=== PATIENT | male | born 1980 | race Two or more races ===

== ENCOUNTER 2024-10-17 04:15 | Emergency (ER) | payer MEDICAID, OTHER ==
[~2024-10-17] VITALS: Ht 167.6 cm; Wt 98.0 kg
--- NOTE | 2024-10-17 04:57 | ED.PDOC ---
GI ASSESSMENT HPI Comments -A 44 YEAR-OLD MALE PRESENTS TO THE ED WITH A CHIEF COMPLAINT OF LEFT SIDE ABDOMINAL PAIN OF LAST NIGHT. PATIENT STATES THAT PAIN IS RADIATING TO BACK, EXACERBATED WITH MOVEMENT, WITH NO ASSOCIATED ALLEVIATING FACTORS. PATIENT HAS NO FURTHER COMPLAINTS AT THIS TIME AND OTHERWISE DENIES N/V, FEVER, CHILLS, CHEST PAIN, OR DIZZINESS. PATIENT IS ALERT, ORIENTED X 4, AND HAS STEADY GAIT. Chief Complaint: LUQ ABDOMINAL PAIN Time Seen by MD: 04:17 Reviewed Notes: Nurses Notes, Medications, Allergies Home Meds Active Scripts Tamsulosin Hcl (Flomax) 0.4 Mg Cap, 1 CAP PO DAILY, #30 CAP Prov:LAVONNE WREN 10/17/24 Ibuprofen (Ibuprofen) 800 Mg Tab, 1 TAB PO TID, #30 TAB Prov:LAVONNE WREN 10/17/24 Information Source: Patient Mode of Arrival: Ambulatory Timing: Days Duration: Since onset, Days Prehospital treatment: None Quality: Sharp, Colicky Vomitus: None Stool: Normal Severity: Moderate Recent: None Recent Hx of: None Pain Location: LUQ, LLQ Modifying Factors: Nothing Associated sign and symptoms: Nausea, Abdominal Pain (LUQ) Past Medical History PAST MEDICAL HISTORY: Denies Surgical History: Denies all surgeries Family History Family History: Reviewed,noncontributory to illness, No family hx of Cancer, No family hx of DM, No family hx of Heart richi, No family hx of HTN, No family hx ofKidney richi, No family hx of Liver richi, No family hx of Lung richi, No family hx of Stroke Social History Smoker: Non-Smoker Alcohol: Denies ETOH Use Drugs: Denies Drug Use Lives In: Home Constitutional: denies: chills, diaphoresis, fatigue, fever, malaise, sweats, weakness, others EENTM: denies: blurred vision, double vision, ear bleeding, ear discharge, ear drainage, ear pain, ear ringing, eye pain, eye redness, hearing loss, mouth p ain, mouth swelling, nasal discharge, nose bleeding, nose congestion, nose pain, photophobia, tearing, throat pain, throat swelling, voice changes, others Respiratory: denies: cough, hemoptysis, orthopnea, SOB at rest, shortness of br eath, SOB with excertion, stridor, wheezing, others Cardiovascular: denies: chest pain, dizzy spells, diaphoresis, Dyspnea on exertion, edema, irregular heart beat, left arm pain, lightheadedness, palpitations, PND, syncope, others Gastrointestinal: reports: abdominal pain; denies: abdomen distended, blood streaked bowels, constipated, diarrhea, dysphagia, difficulty swallowing, hematemesis, melena, nausea, poor appetite, poor fluid intake, rectal bleeding, rectal pain, vomiting, others Genitourinary: reports: flank pain; denies: burning, dysuria, frequency, hematuria, incontinence, penile discharge, penile sore, pain, testicle pain, testicle swelling, urgency, others Neurological: denies: dizziness, fainting, headache, left sided numbness, left sided weakness, numbness, paresthesia, pre-existing deficit, right sided numbness, right sided weakness, seizure, speech problems, tingling, tremors, weakness, others Musculoskeletal: denies: back pain, gout, joint pain, joint swelling, muscle pain, muscle stiffness, neck pain, others Integumetry: denies: bruises, change in color, change in hair/nails, dryness, laceration, lesions, lumps, rash, wounds, others Allergic/Immunocompromised: denies: Difficulty Healing, Frequent Infections, Hives, Itching, others Hematologic/Lymphatic: denies: anemia, blood clots, easy bleeding, easy bruising, swollen glands, others Endocrine: denies: excessive hunger, excessive sweating, excessive thirst, excessive urination, flushing, intolerance to cold, intolerance to heat, unexplained weight gain, unexplained weight loss, others Psychiatric: denies: anxiety, bipolar disorder, depression, hopeless, panic dis order, schizophrenia, sleepless, suicidal, others All Other Systems: Reviewed and Negative Physical Exam General Appearance: No Apparent Distress, Normal HEENT: Normal ENT Inspection, PERRL/EOMI, Pharynx Normal, TMs Normal Neck: Full Range of Motion, Non-Tender, Normal, Normal Inspection Respiratory: Chest Non-Tender, Lungs Clear, No Accessory Muscle Use, No Respiratory Distress, Normal Breath Sounds Cardiovascular: No Edema, No JVD, No Murmur, No Gallop, Normal Peripheral Pulses, Regular Rate/Rhythm Breast Exam: Deferred Gastrointestinal: LLQ, No Organomegaly, No Pulsatile Mass, Normal Bowel Sounds, Soft, Tenderness (LEFT FLANK TO LEFT SIDE ABD, NO GUARDING AND REBOUND TENDERNESS, NO CVA TENDERNESS. ) Genitalia: Deferred Pelvic: Deferred Rectal: Deferred Extremities: No calf tenderness, Normal capillary refill, Normal inspection, Normal range of motion, Non-tender, No pedal edema Musculoskeletal : Apperance: Normal Neurologic: Alert, design tech II-XII nml as Tested, No Motor Deficits, Normal Affect, Normal Mood, No Sensory Deficits Cerebellar Function: Normal Reflexes: Normal Skin: Dry, Normal Color, Warm Peripheral Pulses: 2+ carotid (R), 2+ carotid (L) Lymphatic: No Adenopathy Was a procedure done? Was a procedure done?: No GI differential Dx Differential Diagnosis: Appendicitis, Gastritis/PUD, Gastroenteritis, Inflammatory BD, Urolithiasis, Bacterial, Malnutrition, Kidney Stone X-Ray, Labs, Meds, VS Vital Signs Date Time Temp Pulse Resp B/P (MAP) Pulse Ox O2 Delivery O2 Flow Rate FiO2 10/17/24 08:10 69 16 95 Room Air* 0 21 10/17/24 08:10 97.7 69 16 122/84 (97) 95 97.7 10/17/24 06:56 61 16 150/91 (110) 95 10/17/24 06:54 61 16 150/91 10/17/24 04:59 99.0 108 20 141/97 (112) 98 99.0 Lab Test 10/17/24 05:56 Range/Units White Blood Count 10.0 4.4-10.8 10^3/uL Red Blood Count 5.37 4.5-5.90 10^6/uL Hemoglobin 16.2 13.5-17.5 g/dL Hematocrit 46.7 41.0-53.0 % Mean Corpuscular Volume 87.0 80.0-100.0 fL Mean Corpuscular Hemoglobin 30.1 28.0-32.0 pg Mean Corpuscular Hemoglobin Concent 34.6 32.0-36.0 g/dL Red Cell Distribution Width 12.8 11.8-14.3 % Platelet Count 196 140-450 10^3/uL Mean Platelet Volume 8.0 6.9-10.8 fL Neutrophils (%) (Auto) 81.5 H 37.0-80.0 % Lymphocytes (%) (Auto) 12.6 10.0-50.0 % Monocytes (%) (Auto) 3.7 0.0-12.0 % Eosinophils (%) (Auto) 1.8 0.0-7.0 % Basophils (%) (Auto) 0.4 0.0-2.0 % Neutrophils # (Auto) 8.2 1.6-8.6 10 ^3/uL Lymphocytes # (Auto) 1.3 0.4-5.4 10 ^3/uL Monocytes # (Auto) 0.4 0-1.3 10 ^3/uL Eosinophils # (Auto) 0.2 0-0.8 10 ^3/uL Basophils # (Auto) 0 0-0.2 10 ^3/uL Nucleated Red Blood Cells 0.1 % Sodium Level 141 136-145 mmol/L Potassium Level 4.4 3.5-5.1 mmol/L Chloride Level 109 H 98-107 mmol/L Carbon Dioxide Level 24 20-31 mmol/L Anion Gap 8 5-15 Blood Urea Nitrogen 14 9-23 mg/dL Creatinine 0.85 0.700-1.30 mg/dL Glomerular Filtration Rate Calc 111 >90 mL/min BUN/Creatinine Ratio 16.5 10.0-20.0 Serum Glucose 116 H 74-106 mg/dL Calcium Level 9.1 8.7-10.4 mg/dL Total Bilirubin 0.4 0.2-1.0 mg/dL Aspartate Amino Transferase (AST) 28 13-40 U/L Alanine Aminotransferase (ALT) 43 H 7-40 U/L Alkaline Phosphatase 82 46-116 U/L Total Protein 6.7 5.7-8.2 g/dL Albumin 4.5 3.2-4.8 g/dL Lipase 36 12-53 U/L Exam: CT CT AB PEL WO CON-NO ORAL OR IV History: left flank pain Comparison Study: None Technique: Multidetector spiral CT of the abdomen was performed from lung bases to pubic symphysis. Imaging was performed without IV contrast. Axial, coronal and sagittal multiplanar reformats were obtained from the axial data set by the technologist. Radiation Dose : 1. Abdomen/Pelvis: CTDIvol 15.2 mGy, DLP 990.2 mGy*cm. Findings: Evaluation of solid organs is limited due to lack of intravenous contrast use. Lung Bases: Cardiomegaly. Coronary artery calcifications. Vascular calcifications of the aorta. Liver: Hepatomegaly. Gallbladder and Biliary Tree: Unremarkable Spleen: Unremarkable Pancreas: The pancreas is grossly normal in appearance. Adrenal Glands: Unremarkable Kidneys: Right kidney is unremarkable. Mild left hydroureteronephrosis with 0.2 cm obstructing stone in the mid left ureter. Bladder: Grossly unremarkable for degree of distention. Bowel: Post gastric bypass. Small bowel and colon are normal in caliber and distribution. Normal appendix is visualized in the right lower quadrant without findings of appendicitis. Ascites: Absent Lymphadenopathy: No mesenteric, retroperitoneal or periportal lymphadenopathy. Abdominal Wall and Mesentery: Unremarkable. Vasculature: The visualized abdominal aorta is normal in size and caliber. Evaluation of abdominal and pelvic vessels is limited due to lack of intravenous contrast. Pelvic Organs: Unremarkable Musculoskeletal: No aggressive focal bony lesions, acute fractures or dislocation. IMPRESSION: Mild left hydroureteronephrosis with 0.2 cm obstructing stone in the mid left ureter. Radiation optimization: All CT scans at this facility use at least one of these dose optimization techniques: automated exposure control mA and/or kV adjustment per patient size (includes targeted exams where dose is matched to clinical indication) or iterative reconstruction. X-Ray, Labs, Meds, VS Comment EXTERNAL MEDICAL RECORDS: NONE INDEPENDENT HISTORIANS: NONE SOCIAL DETERMINANTS OF HEALTH: NONE LABS ORDERED: BLOOD COUNT, METABOLIC PANEL, LIPASE, URINALYSIS REVIEWED AND INTERPRETED RESULTS: NONE IMAGING ORDERED: ABDOMINAL PEL CT SCAN TREATMENTS ORDERED: TORADOL INJECTION, SODIUM CHLORIDE 0.9%, MORPHINE SULFATE INJECTION, ZOFRAN PATIENT'S CASE AND RESULTS HAVE BEEN DISCUSSED WITH THE ED ATTENDING PHYSICIAN AND THEY AGREE WITH MY PLAN OF CARE. RX: MOTRIN 800MG AND FLOMAX 0.4MG I HAVE DISCUSSED IMAGING AND LAB RESULTS WITH THE PATIENT AND HAVE INSTRUCTED THE PATIENT TO FOLLOW UP WITH THEIR PCP IN 1-2 DAYS. THE PATIENT FULLY UNDERSTANDS THEIR RESULTS AND ARE AWARE THEY NEED TO FOLLOW UP WITH THEIR PCP FOR FURTHER EVALUATION IF THEIR SYMPTOMS PERSIST. Images Reviewed?: Images reviewed and evaluated by me Time of 1ST Reevaluation: 08:00 Reevaluation 1ST: Improved Patient Education/Counseling: Diagnosis, Treatment, Need For Follow Up Family Education/Counseling: Diagnosis, Treatment, No Family Present Medical Screening: No EMC Exist At This Time SEPSIS Sepsis Screen Physician Orders Ct Ab Pel Wo Con-No Oral Or Iv (10/17/24 04:57) Vital Signs Date Time Temp Pulse Resp B/P (MAP) Pulse Ox O2 Delivery O2 Flow Rate FiO2 10/17/24 08:10 69 16 95 Room Air* 0 21 10/17/24 08:10 97.7 69 16 122/84 (97) 95 97.7 10/17/24 06:56 61 16 150/91 (110) 95 10/17/24 06:54 61 16 150/91 10/17/24 04:59 99.0 108 20 141/97 (112) 98 99.0 Laboratory Tests Test 10/17/24 05:56 White Blood Count 10.0 10^3/uL (4.4-10.8) Departure 1 Departure Time of Disposition: 08:00 Impression: Primary Impression: Left ureteral calculus Disposition: HOME / SELF CARE / HOMELESS Condition: Stable Additional Instructions: FOLLOW-UP WITH PCP IN 1 TO 2 DAYS. TAKE MEDICATIONS PRESCRIBED. RETURN TO ED FOR ANY NEW OR WORSENING SYMPTOMS. e-Prescriptions Tamsulosin Hcl (Flomax) 0.4 Mg Cap 1 CAP PO DAILY, #30 CAP Prov: LAVONNE WREN 10/17/24 Ibuprofen (Ibuprofen) 800 Mg Tab 1 TAB PO TID, #30 TAB Prov: LAVONNE WREN 10/17/24 Discharged With: Self Critical Care Note Critical Care Time?: No Stability Stability form required: No Heart Score Heart Score: Heart Score Response (Comments) Value History N/A 0 EKG N/A 0 Age N/A 0 Risk Factors N/A 0 Troponin N/A 0 Total 0 I personally scribed for LAVONNE WREN ([email or web address]) on 10/17/24 at 07:16. Electronically submitted by Zulema Gallegos ([email or web address]). I personally scribed for LAVONNE WREN ([email or web address]) on 10/17/24 at 07:17. Electronically submitted by Zulema Gallegos (Crunched). I personally scribed for LAVONNE WREN ([email or web address]) on 10/17/24 at 07:27. Electronically submitted by Zulema Gallegos (Crunched). I personally scribed for LAVONNE WREN ([email or web address]) on 10/17/24 at 07:29. Electronically submitted by Zulema Gallegos ([facility]). ELIEL MCCLURE [facility] Oct 17, 2024 04:57 LAVONNE WREN Oct 17, 2024 07:16
[2024-10-17] MEDS ORDERED: SODIUM CHLORIDE 0.9% 1,000 ML IV ONE (05:00)
--- NOTE | 2024-10-17 06:17 | DVH ---
Exam: CT CT AB PEL WO CON-NO ORAL OR IV History: left flank pain Comparison Study: None Technique: Multidetector spiral CT of the abdomen was performed from lung bases to pubic symphysis. I maging was performed without IV contrast. Axial, coronal and sagittal multiplanar reformats were obta ined from the axial data set by the technologist. Radiation Dose : 1. Abdomen/Pelvis: CTDIvol 15.2 mGy, DLP 990.2 mGy*cm. Findings: Evaluation of solid organs is limited due to lack of intravenous contrast use. Lung Bases: Cardiomegaly. Coronary artery calcifications. Vascular calcifications of the aorta. Liver: Hepatomegaly. Gallbladder and Biliary Tree: Unremarkable Spleen: Unremarkable Pancreas: The pancreas is grossly normal in appearance. Adrenal Glands: Unremarkable Kidneys: Right kidney is unremarkable. Mild left hydroureteronephrosis with 0.2 cm obstructing stone in the mid left ureter. Bladder: Grossly unremarkable for degree of distention. Bowel: Post gastric bypass. Small bowel and colon are normal in caliber and distribution. Normal appe ndix is visualized in the right lower quadrant without findings of appendicitis. Ascites: Absent Lymphadenopathy: No mesenteric, retroperitoneal or periportal lymphadenopathy. Abdominal Wall and Mesentery: Unremarkable. Vasculature: The visualized abdominal aorta is normal in size and caliber. Evaluation of abdominal a nd pelvic vessels is limited due to lack of intravenous contrast. Pelvic Organs: Unremarkable Musculoskeletal: No aggressive focal bony lesions, acute fractures or dislocation. IMPRESSION: Mild left hydroureteronephrosis with 0.2 cm obstructing stone in the mid left ureter. Radiation optimization: All CT scans at this facility use at least one of these dose optimization ava hniques: automated exposure control mA and/or kV adjustment per patient size (includes targeted exam s where dose is matched to clinical indication) or iterative reconstruction.
[2024-10-17 06:37] LABS: Hematocrit 46.7 % (41.0-53.0); Hemoglobin 16.2 g/dL (13.5-17.5); Mean Corpuscular Hemoglobin 30.1 pg (28.0-32.0); Mean Corpuscular Volume 87.0 fL (80.0-100.0); Nucleated Red Blood Cells % 0.1 %
[2024-10-17 06:43] LABS: Albumin 4.5 g/dL (3.2-4.8); Alkaline Phosphatase 82 U/L (46-116); Anion Gap 8 (5-15); BUN/Creatinine Ratio 16.5 (10.0-20.0); Bilirubin, Total 0.4 mg/dL (0.2-1.0); Blood Urea Nitrogen 14 mg/dL (9-23); Calcium 9.1 mg/dL (8.7-10.4); Carbon Dioxide 24 mmol/L (20-31); Lipase 36 U/L (12-53); Potassium 4.4 mmol/L (3.5-5.1); Sodium 141 mmol/L (136-145); Total Protein 6.7 g/dL (5.7-8.2)
[2024-10-17] MEDS: SODIUM CHLORIDE 0.9% 1,000 ML IV ONE (06:53)
[2024-10-17] MEDS: ONDANSETRON HCL 4 MG/2 ML VIAL ONE (06:53)
[2024-10-17] MEDS: KETOROLAC TROMETH 30 MG/ML 1ML VIAL IV ONE (06:53)
[2024-10-17] MEDS: MORPHINE SULFATE 4 MG/ML SYR/VIAL IV ONE (06:54)
[2024-10-17 07:00] LABS: Alanine Aminotransferase 43 U/L (7-40); Chloride 109 mmol/L (98-107); Glucose 116 mg/dL (74-106)
[2024-10-17] MEDS ORDERED: TAMS-35 PO (07:40)
[2024-10-17] MEDS ORDERED: IBUP-1456 PO (07:40)
[2024-10-17 08:10] VITALS: BP 122/84; PULSE 69; RESP 16; TEMP 97.7; O2SAT 95
== END 2024-10-17 08:16 | disposition home or self-care (01) ==
LOC: ER 04:15
DX: N13.2 Hydronephrosis with renal and ureteral calculous obstruction (principal)
CPT/HCPCS: 36415; 74176; 80053; 83690; 85025; 96361; 96374; 96375; 99285; J1885; J2270; J2405; J7030

== ENCOUNTER 2024-11-01 16:39 | Inpatient (IN) | payer MEDICAID ==
[~2024-11-01] VITALS: Ht 170.2 cm; Wt 93.2 kg
[~2024-11-01 16:39] MED LIST: IBUP-1456 PO; TAMS-35 PO
--- NOTE | 2024-11-01 16:55 | ED.PDOC ---
HPI Comments 44 year old male presents to the ED with a chief complaint of chest pain onset 1 week. Patient states he has been experiencing substernal chest pain, radiating to back for the past week as well as dizziness and shortness of breath. Patient experienced similar symptoms about 2 weeks ago, was in [place], was seen by a doctor and prescribed Chlorthalidone, a water pill. Patient had a CABG in 2019. Denies nausea, vomiting, abdominal pain, headache, numbness/tingling, blurry vi paddy. No other symptoms or modifying factors present at this time. Chief Complaint: Chest Pain Time Seen by MD: 16:45 Reviewed Notes: Medications, Allergies Allergies: Coded Allergies: NO KNOWN ALLERGIES (Unverified , 11/01/24) Home Meds Active Scripts Tamsulosin Hcl (Flomax) 0.4 Mg Cap, 1 CAP PO DAILY, #30 CAP Prov:LAVONNE WREN 10/17/24 Ibuprofen (Ibuprofen) 800 Mg Tab, 1 TAB PO TID, #30 TAB Prov:LAVONNE WREN 10/17/24 Information Source: Patient Mode of Arrival: Ambulatory Severity: Moderate Timing: Weeks Duration: Since onset Prehospital treatment: None Location: Substernal Radiation: Back Quality: Sharp Onset: At Rest Cardiac Risk Factors: None PE Risk Factors: None History of: Similar pain in past Modifying Factors: Nothing Associated Signs and Symptoms: SOB, Back Pain Past Medical History PAST MEDICAL HISTORY: Denies Surgical History: CABG Family History Family History: Reviewed,noncontributory to illness, No family hx of Cancer, No family hx of DM, No family hx of Heart richi, No family hx of HTN, No family hx ofKidney richi, No family hx of Liver richi, No family hx of Lung richi, No family hx of Stroke Social History Smoker: Non-Smoker Alcohol: Denies ETOH Use Drugs: Denies Drug Use Lives In: Home Constitutional: denies: chills, diaphoresis, fatigue, fever, malaise, sweats, weakness, others EENTM: denies: blurred vision, double vision, ear bleeding, ear discharge, ear drainage, ear pain, ear ringing, eye pain, eye redness, hearing loss, mouth pain, mouth swelling, nasal discharge, nose bleeding, nose congestion, nose pain, photophobia, tearing, throat pain, throat swelling, voice changes, others Respiratory: reports: shortness of breath Cardiovascular: reports: chest pain; denies: dizzy spells, diaphoresis, Dyspnea on exertion, edema, irregular heart beat, left arm pain, lightheadedness, palpitations, PND, syncope, others Gastrointestinal: denies: abdomen distended, abdominal pain, blood streaked bowels, constipated, diarrhea, dysphagia, difficulty swallowing, hematemesis, melena, nausea, poor appetite, poor fluid intake, rectal bleeding, rectal pain, vomiting, others Genitourinary: denies: burning, dysuria, flank pain, frequency, hematuria, incontinence, penile discharge, penile sore, pain, testicle pain, testicle swelling, urgency, others Neurological: reports: dizziness; denies: fainting, headache, left sided numbness, left sided weakness, numbness, paresthesia, pre-existing deficit, right sided numbness, right sided weakness, seizure, speech problems, tingling, tremors, weakness, others Musculoskeletal: denies: back pain, gout, joint pain, joint swelling, muscle pain, muscle stiffness, neck pain, others Integumetry: denies: bruises, change in color, change in hair/nails, dryness, laceration, lesions, lumps, rash, wounds, others Allergic/Immunocompromised: denies: Difficulty Healing, Frequent Infections, Hives, Itching, others Hematologic/Lymphatic: denies: anemia, blood clots, easy bleeding, easy bruising, swollen glands, others Endocrine: denies: excessive hunger, excessive sweating, excessive thirst, excessive urination, flushing, intolerance to cold, intolerance to heat, unexplained weight gain, unexplained weight loss, others Psychiatric: denies: anxiety, bipolar disorder, depression, hopeless, panic disorder, schizophrenia, sleepless, suicidal, others All Other Systems: Reviewed and Negative Physical Exam General Appearance: Normal HEENT: Normal ENT Inspection, Pharynx Normal, TMs Normal Neck: Full Range of Motion, Non-Tender, Normal, Normal Inspection Respiratory: Chest Non-Tender, Lungs Clear, No Accessory Muscle Use, No Respiratory Distress, Normal Breath Sounds Cardiovascular: No Edema, No JVD, No Murmur, No Gallop, Normal Peripheral Pulses, Regular Rate/Rhythm, Other (reproducible chest pain) Breast Exam: Deferred Gastrointestinal: No Organomegaly, Non Tender, No Pulsatile Mass, Normal Bowel Sounds, Soft Genitalia: Deferred Pelvic: Deferred Rectal: Deferred Extremities: No calf tenderness, Normal capillary refill, Normal inspection, Normal range of motion, Non-tender, No pedal edema Musculoskeletal : Apperance: Normal Neurologic: Alert, sanitation laborer II-XII nml as Tested, No Motor Deficits, Normal Affect, Normal Mood, No Sensory Deficits Cerebellar Function: Normal Reflexes: Normal Skin: Dry, Normal Color, Warm Lymphatic: No Adenopathy EKG EKG : Pulse Rate (adult): 85 Cardiac Rhythm: NSR Was a procedure done? Was a procedure done?: No CP Differential Dx Differential Diagnosis: Angina, Anxiety / Panic Attack, Atrial Dysrhythmia X-Ray, Labs, Meds, VS Vital Signs Date Time Temp Pulse Resp B/P (MAP) Pulse Ox O2 Delivery O2 Flow Rate FiO2 11/01/24 19:28 66 11/01/24 18:06 67 11/01/24 16:55 85 11/01/24 16:50 97.6 84 15 131/96 (108) 99 97.6 11/01/24 16:44 85 Lab Test 11/01/24 19:50 11/01/24 17:56 11/01/24 17:08 11/01/24 16:49 Range/Units Troponin I High Sensitivity < 3 L < 3 L < 3 L </=54 ng/L White Blood Count 7.9 4.4-10.8 10^3/uL Red Blood Count 6.13 H 4.5-5.90 10^6/uL Hemoglobin 18.4 H 13.5-17.5 g/dL Hematocrit 52.4 41.0-53.0 % Mean Corpuscular Volume 85.5 80.0-100.0 fL Mean Corpuscular Hemoglobin 30.1 28.0-32.0 pg Mean Corpuscular Hemoglobin Concent 35.2 32.0-36.0 g/dL Red Cell Distribution Width 13.1 11.8-14.3 % Platelet Count 284 140-450 10^3/uL Mean Platelet Volume 7.9 6.9-10.8 fL Neutrophils (%) (Auto) 60.1 37.0-80.0 % Lymphocytes (%) (Auto) 26.4 10.0-50.0 % Monocytes (%) (Auto) 8.7 0.0-12.0 % Eosinophils (%) (Auto) 4.0 0.0-7.0 % Basophils (%) (Auto) 0.8 0.0-2.0 % Neutrophils # (Auto) 4.7 1.6-8.6 10 ^3/uL Lymphocytes # (Auto) 2.1 0.4-5.4 10 ^3/uL Monocytes # (Auto) 0.7 0-1.3 10 ^3/uL Eosinophils # (Auto) 0.3 0-0.8 10 ^3/uL Basophils # (Auto) 0.1 0-0.2 10 ^3/uL Nucleated Red Blood Cells 0.0 % Sodium Level 139 136-145 mmol/L Potassium Level 3.9 3.5-5.1 mmol/L Chloride Level 103 98-107 mmol/L Carbon Dioxide Level 26 20-31 mmol/L Anion Gap 10 5-15 Blood Urea Nitrogen 23 9-23 mg/dL Creatinine 1.07 0.700-1.30 mg/dL Glomerular Filtration Rate Calc 88 >90 mL/min BUN/Creatinine Ratio 21.5 H 10.0-20.0 Serum Glucose 83 74-106 mg/dL Calcium Level 9.8 8.7-10.4 mg/dL POC Glucose 106 70-106 mg/dl [place] [id number] Ph: [phone] DIAGNOSTIC IMAGING Diagnostic Imaging Report : [id number] Signed PATIENT: GERSON SALES ACCT: [id number] UNIT: [id number] : 1980 LOC: ER ROOM / BED: / AGE / SEX: 44 / M ADM STATUS: REG ER SERVICE [id number] ORDERING PHYSICIAN: ANNE TORRES PROCEDURE(s): CXR1 - CHEST XRAY 1 VIEW REASON: cp ORDER NUMBER(s): [id number], ACCESSION NUMBER(s): [id number] XY CHEST XRAY 1 VIEW, HISTORY: cp COMPARISON: None None TECHNICAL DATA: 1 view of the chest was obtained. FINDINGS: Lines and tubes: None Cardiomediastinal silhouette: normal Pulmonary vasculature: normal Lung expansion: normal Lung airspace: normal Lung interstitium: normal Pleura: normal Pneumothorax: no Bones: Unremarkable Other: no IMPRESSION: No acute intrathoracic abnormality. ATED BY: ERICK CHAVEZ MD DICTATED DATE/TIME: 11/01/241707 SIGNED BY: ERICK CHAVEZ MD SIGNED DATE/TIME: 11/01/241707 CC: X-Ray, Labs, Meds, VS Comment Imaging: X-rays and CT scans were reviewed and interpreted by this provider, imaging shows no fractures and no pathological disease. Pending radiology review. Laboratory: Labs reviewed and interpreted by this provider. No significant abnormalities noted. Patient has prior medical visits reviewed. Med reconciliation performed Vital signs reviewed Time of 1ST Reevaluation: 17:15 Reevaluation 1ST: Unchanged Patient Education/Counseling: Diagnosis, Treatment, Prognosis, Need For Follow Up (With PCP next available appointment. Return to the emergency department if symptoms worsen.) Family Education/Counseling: No Family Present SEPSIS Sepsis Screen Physician Orders Electrocardigram (11/01/24 19:42) Urinalysis (11/01/24 16:50) Chest Xray 1 View (11/01/24 16:50) Vital Signs Date Time Temp Pulse Resp B/P (MAP) Pulse Ox O2 Delivery O2 Flow Rate FiO2 11/01/24 19:28 66 11/01/24 18:06 67 11/01/24 16:55 85 11/01/24 16:50 97.6 84 15 131/96 (108) 99 97.6 11/01/24 16:44 85 Laboratory Tests Test 11/01/24 17:08 White Blood Count 7.9 10^3/uL (4.4-10.8) Departure 1 Departure Time of Disposition: 20:56 Impression: Primary Impression: Musculoskeletal chest pain Disposition: 01 HOME / SELF CARE / HOMELESS Condition: Fair Discharged With: Self Critical Care Note Critical Care Time?: No Stability Stability form required: No Heart Score Heart Score: Heart Score Response (Comments) Value History Slightly Suspicious 0 EKG Normal 0 Age <45 0 Risk Factors No known risk factors 0 Troponin Normal limit 0 Total 0 I personally scribed for ANNE TORRESP ([email or web address]) on 11/01/24 at 16:55. Electronically submitted by Cyndy Alcantara ([email or web address]). I personally scribed for ANNE TORRES ([email or web address]) on 11/01/24 at 17:25. Electronically submitted by Cydny Alcantara ([email or web address]). ANNE TORRES Nov 01, 2024 16:55
--- NOTE | 2024-11-01 17:10 | DVH ---
XY CHEST XRAY 1 VIEW, HISTORY: cp COMPARISON: None None TECHNICAL DATA: 1 view of the chest was obtained. FINDINGS: Lines and tubes: None Cardiomediastinal silhouette: normal Pulmonary vasculature: normal Lung expansion: normal Lung airspace: normal Lung interstitium: normal Pleura: normal Pneumothorax: no Bones: Unremarkable Other: no IMPRESSION: No acute intrathoracic abnormality.
[2024-11-01 17:18] LABS: Hematocrit 52.4 % (41.0-53.0); Hemoglobin 18.4 g/dL (13.5-17.5); Mean Corpuscular Hemoglobin 30.1 pg (28.0-32.0); Mean Corpuscular Volume 85.5 fL (80.0-100.0); Nucleated Red Blood Cells % 0.0 %
[2024-11-01 17:25] LABS: Chloride 103 mmol/L (98-107); Potassium 3.9 mmol/L (3.5-5.1); Sodium 139 mmol/L (136-145)
[2024-11-01 17:26] LABS: Anion Gap 10 (5-15); Calcium 9.8 mg/dL (8.7-10.4); Carbon Dioxide 26 mmol/L (20-31)
[2024-11-01 17:31] LABS: BUN/Creatinine Ratio 21.5 (10.0-20.0); Glucose 83 mg/dL (74-106)
--- NOTE | 2024-11-01 18:07 | ECG ---
[facility] Test Date: 2024-11-01 Test Time: 18:06:04 Pat Name: GERSON SALES Department: ED Room: Gender: M Driller Operator: tanner : 1980 Requested By: SHAW HOWARD Order Number: [id number] Reading MD: Measurements Intervals [place] Rate: 67 P: 66 MT: 168 QRS: 43 QRSD: 102 T: 29 QT: 531 QTc: 561 Interpretive Statements Sinus rhythm Borderline T wave abnormalities Prolonged QT interval Baseline wander in lead(s) I,II,aVR,aVL,aVF,V2,V3,V4,V5 Please click the below link to view image of tracing.
[2024-11-01 18:23] LABS: Blood Urea Nitrogen 23 mg/dL (9-23)
--- NOTE | 2024-11-01 19:32 | ECG ---
[facility] Test Date: 2024-11-01 Test Time: 19:28:49 Pat Name: GERSON SALES Department: ED Room: Gender: M Director Of Strategic Communications: ari : 1980 Requested By: SHAW HOWARD Order Number: [id number] Reading MD: Measurements Intervals [place] Rate: 66 P: 65 IN: 172 QRS: 43 QRSD: 106 T: -25 QT: 426 QTc: 447 Interpretive Statements Sinus rhythm Borderline T wave abnormalities Baseline wander in lead(s) I,II,aVR Please click the below link to view image of tracing.
[2024-11-01] MEDS ORDERED: ACETAMINOPHEN 325 MG TAB PO PRN (22:45)
[2024-11-01] MEDS ORDERED: ONDANSETRON HCL 4 MG/2 ML VIAL IV PRN (22:45)
[2024-11-01] MEDS ORDERED: MORPHINE SULFATE INJ 2 MG/ml SYRG IV PRN (22:45)
[2024-11-01] MEDS ORDERED: TEMAZEPAM 15 MG CAP PO PRN (22:45)
[2024-11-01] MEDS ORDERED: NITROGLYCERIN 0.4 MG SL TAB SL PRN (22:45)
--- NOTE | 2024-11-01 23:34 | DVHHP2 ---
History of Present Illness Reason for Visit: Chest pain History of Present Illness 44-year-old male presents for evaluation of chest pain. Patient endorses a one- week history of substernal pressure-like nonradiating chest pain with associated shortness for breath. He states the symptoms worsened with exertion. Denies cough or fever. No other acute complaints. Past Medical History CAD Past Surgical History CABG Family History Noncontributory Smoke: No ALCOHOL: none Drugs: None Lives: with Family Review of Systems Review of Systems Review of systems are currently negative otherwise addressed in HPI. Allergies: Coded Allergies: NO KNOWN ALLERGIES (Unverified , 11/01/24) Medications Current Medications Medications Dose Ordered Sig/Deshawn Route Start Time Stop Time Status Last Admin Dose Admin Aspirin 81 mg DAILY PO 11/02/24 10:00 Atorvastatin Calcium 10 mg HS PO 11/02/24 22:00 Temazepam 15 mg QHSP PRN PO 11/01/24 22:45 Ondansetron HCl 4 mg Q4HP PRN IV 11/01/24 22:45 Acetaminophen 650 mg Q6HP PRN PO 11/01/24 22:45 Nitroglycerin 0.4 mg Q5MINP PRN SL 11/01/24 22:45 Morphine Sulfate 2 mg Q30M PRN IV 11/01/24 22:45 Exam Vital Signs Vital Signs Date Time Temp Pulse Resp B/P (MAP) Pulse Ox O2 Delivery O2 Flow Rate FiO2 11/01/24 22:07 97.8 56 18 123/65 (84) 97 97.8 Exam Gen: 44-year-old male in mild distress Skin: Warm, dry, normal color and texture, no rash. HEENT: Normocephalic atraumatic, mucous membranes moist and pink. Neck: Cervical and supraclavicular nodes normal without enlargement, trachea is midline, thyroid gland is normal without masses. Pulmonary: Clear to auscultation and percussion bilaterally. Cardiac: Regular rate and rhythm. No murmur Abdomen: Soft, nontender, nondistended, bowel sounds present all 4 quadrants, no guarding, no rigidity, no organomegaly. Extremities: No cyanosis, clubbing, no edema Neuro: Cranial nerves II through XII grossly intact, normal affect and speech, no focal motor deficits. Labs/Xrays ORDERING PHYSICIAN: ANNE TORRES PROCEDURE(s): CXR1 - CHEST XRAY 1 VIEW REASON: cp ORDER NUMBER(s): [id number], ACCESSION NUMBER(s): [id number] XY CHEST XRAY 1 VIEW, HISTORY: cp COMPARISON: None None TECHNICAL DATA: 1 view of the chest was obtained. FINDINGS: Lines and tubes: None Cardiomediastinal silhouette: normal Pulmonary vasculature: normal Lung expansion: normal Lung airspace: normal Lung interstitium: normal Pleura: normal Pneumothorax: no Bones: Unremarkable Other: no IMPRESSION: No acute intrathoracic abnormality. Labs Test 11/01/24 19:50 11/01/24 17:08 11/01/24 16:49 Range/Units Troponin I High Sensitivity < 3 L </=54 ng/L White Blood Count 7.9 4.4-10.8 10^3/uL Red Blood Count 6.13 H 4.5-5.90 10^6/uL Hemoglobin 18.4 H 13.5-17.5 g/dL Hematocrit 52.4 41.0-53.0 % Mean Corpuscular Volume 85.5 80.0-100.0 fL Mean Corpuscular Hemoglobin 30.1 28.0-32.0 pg Mean Corpuscular Hemoglobin Concent 35.2 32.0-36.0 g/dL Red Cell Distribution Width 13.1 11.8-14.3 % Platelet Count 284 140-450 10^3/uL Mean Platelet Volume 7.9 6.9-10.8 fL Neutrophils (%) (Auto) 60.1 37.0-80.0 % Lymphocytes (%) (Auto) 26.4 10.0-50.0 % Monocytes (%) (Auto) 8.7 0.0-12.0 % Eosinophils (%) (Auto) 4.0 0.0-7.0 % Basophils (%) (Auto) 0.8 0.0-2.0 % Neutrophils # (Auto) 4.7 1.6-8.6 10 ^3/uL Lymphocytes # (Auto) 2.1 0.4-5.4 10 ^3/uL Monocytes # (Auto) 0.7 0-1.3 10 ^3/uL Eosinophils # (Auto) 0.3 0-0.8 10 ^3/uL Basophils # (Auto) 0.1 0-0.2 10 ^3/uL Nucleated Red Blood Cells 0.0 % Sodium Level 139 136-145 mmol/L Potassium Level 3.9 3.5-5.1 mmol/L Chloride Level 103 98-107 mmol/L Carbon Dioxide Level 26 20-31 mmol/L Anion Gap 10 5-15 Blood Urea Nitrogen 23 9-23 mg/dL Creatinine 1.07 0.700-1.30 mg/dL Glomerular Filtration Rate Calc 88 >90 mL/min BUN/Creatinine Ratio 21.5 H 10.0-20.0 Serum Glucose 83 74-106 mg/dL Calcium Level 9.8 8.7-10.4 mg/dL POC Glucose 106 70-106 mg/dl SEPSIS Sepsis Screen Date sepsis recognized/suspect: Nov 01, 2024 Time Sepsis recognized/suspect: 1638 Recent Procedure: No On Antibiotic Therapy: No Respiratory Rate >20: No Heart Rate >90: No Temp<36 C (96.8 F) or >38.3 C: No SBP <90 or MAP <65 mmHG: No New Acute Mental Status Change: No Is the patient on CPAP, BIPAP,: No Physician Orders Electrocardigram (11/01/24 19:42) Urinalysis (11/01/24 16:50) Chest Xray 1 View (11/01/24 16:50) Aspirin Tablet (11/02/24 10:00) Basic Metabolic Panel (11/02/24 04:00) * Cardiology Consult (11/01/24 22:36) Atorvastatin (Lipitor) (11/02/24 22:00) Admit (11/01/24 22:36) Temazepam (Restoril) (11/01/24 22:45) Ondansetron Hcl (Zofran) (11/01/24 22:45) Cardiac Diet-2gna,Lofat,Lochol (11/02/24 Breakfast) Echo 2d Mode Cardiac Dop (11/01/24 22:36) Condition: Fair (11/01/24 22:36) Acetaminophen Tablet (Tylenol Tablet) (11/01/24 22:45) Bedrest With Bathroom Privileg (11/01/24 22:36) Nitroglycerin Sublingual (Ntrostat Subli (11/01/24 22:45) Morphine Sulfate Injection (11/01/24 22:45) Stat Ekg For Chest Pain (11/01/24 22:36) Notify Of Changes From Base (11/01/24 22:36) Seal Skinner For 24 Hours (11/01/24 22:36) Emergency Dysrhythmia Protocol (11/01/24 22:36) Rhythm Strips Once Every Shift (11/01/24 22:36) Oxygen By Nasal Cannula (11/01/24 22:36) Vital Signs Date Time Temp Pulse Resp B/P (MAP) Pulse Ox O2 Delivery O2 Flow Rate FiO2 11/01/24 22:07 97.8 56 18 123/65 (84) 97 97.8 11/01/24 19:28 66 11/01/24 18:06 67 11/01/24 16:55 85 11/01/24 16:50 97.6 84 15 131/96 (108) 99 97.6 11/01/24 16:44 85 Laboratory Tests Test 11/01/24 17:08 White Blood Count 7.9 10^3/uL (4.4-10.8) Assessment/Plan Assessment/Plan Assessment Chest pain rule out ACS Status post CABG Plan Admit the patient to telemetry to the hospitalist Cardiology consultation ACS protocol Continue treatment per orders. Plan discussed with: Patient My Orders Orders - PÉREZ STRICKLAND Procedure Category Date Status Time Aspirin Tablet PHA 11/02/24 In Process 10:00 Basic Metabolic Panel LAB 11/02/24 Verified 04:00 * Cardiology Consult CONS 11/01/24 Transmitted 22:36 Atorvastatin (Lipitor) PHA 11/02/24 In Process 22:00 Admit ADMIT 11/01/24 Transmitted 22:36 Temazepam (Restoril) PHA 11/01/24 In Process 22:45 Ondansetron Hcl PHA 11/01/24 In Process (Zofran) 22:45 Cardiac DIET 11/02/24 Transmitted Diet-2gna,Lofat,Lochol Breakfast Echo 2d Mode Cardiac US 11/01/24 Logged DOP 22:36 Condition: Fair SERENA 11/01/24 In Process 22:36 Acetaminophen Tablet PHA 11/01/24 In Process (Tylenol Tablet) 22:45 Bedrest With Bathroom SERENA 11/01/24 In Process Privileg 22:36 Nitroglycerin PHA 11/01/24 In Process Sublingual (Ntrostat 22:45 Morphine Sulfate PHA 11/01/24 In Process Injection 22:45 Stat Ekg For Chest SERENA 11/01/24 In Process Pain 22:36 Notify Md Of Changes [facility] 11/01/24 In Process From Base 22:36 Seal Skinner For [facility] 11/01/24 In Process 24 Hours 22:36 Emergency Dysrhythmia SERENA 11/01/24 In Process Protocol 22:36 Rhythm Strips Once [facility] 11/01/24 In Process Every Shift 22:36 Oxygen By Nasal RT 11/01/24 Transmitted Cannula 22:36 Date of Service: Nov 01, 2024 Billing Provider: PÉREZ STRICKLAND Common Visit Codes: [id number] INP/OBS CARE (HIGH) PÉREZ STRICKLAND Nov 01, 2024 23:34
[2024-11-01 23:45] LABS: Cholesterol 203 mg/dL (< 200); HDL Cholesterol 43 mg/dL (40-59); Triglycerides 257 mg/dL (< 150)
[2024-11-02 02:12] VITALS: RESP 16
[2024-11-02 05:00] VITALS: BP 141/95; PULSE 53; RESP 15; TEMP 97.2; O2SAT 98
[2024-11-02 07:50] LABS: Anion Gap 9 (5-15); Carbon Dioxide 29 mmol/L (20-31); Chloride 101 mmol/L (98-107); Potassium 3.6 mmol/L (3.5-5.1); Sodium 139 mmol/L (136-145)
[2024-11-02 07:51] LABS: Calcium 10.3 mg/dL (8.7-10.4)
[2024-11-02 07:56] LABS: BUN/Creatinine Ratio 14.3 (10.0-20.0); Blood Urea Nitrogen 18 mg/dL (9-23); Glucose 101 mg/dL (74-106)
[2024-11-02 08:00] VITALS: PULSE 73
[2024-11-02 09:30] VITALS: BP 132/90; PULSE 62; RESP 18; TEMP 97.5; O2SAT 96
[2024-11-02] MEDS ORDERED: TEMAZEPAM 15 MG CAP PO PRN (10:00)
[2024-11-02] MEDS ORDERED: NITROGLYCERIN 0.4 MG SL TAB SL PRN (10:00)
[2024-11-02] MEDS ORDERED: ACETAMINOPHEN 325 MG TAB PO PRN (10:00)
[2024-11-02] MEDS ORDERED: ONDANSETRON HCL 4 MG/2 ML VIAL IV PRN (10:00)
[2024-11-02] MEDS ORDERED: MORPHINE SULFATE INJ 2 MG/ml SYRG IV PRN (10:00)
--- NOTE | 2024-11-02 10:46 | DVHCONRES ---
Date Seen: Nov 02, 2024 Resident Creating Document: PAL CALDWELL RESDIENT History of Present Illness This is a 44-year-old male with past medical history of hypertension, dyslipidemia came to the hospital due to chest pain since 1 week. He describes the pain as substernal heaviness, does not radiate anywhere else, 3/10 in intensity, intermittent which gets worse with mobilization and taking deep breath. He also reports of respiration dyspnea. He denies fever, cough, palpitation, or any recent sick contacts/chest trauma. Patient was seen by a doctor in [place] few weeks ago, and he was told of having a big heart and was prescribed ranolazine, Entresto, chlorthalidone, aspirin, and rosuvastatin. PMHx: Hypertension and dyslipidemia PSHx: Bariatric surgery for morbid obesity Family history: Father had diabetes Social history: Current smoker with 10 pack year history, denies any other drug use Home medication: Ranolazine, Entresto, chlorthalidone, aspirin and rosuvastatin Allergic history: No known allergy Patient seen and examined at the bedside. Patient currently does not have any active complaint including chest pain and shortness of breaths. Family History: Patient reports no known family medical history. Allergies: Coded Allergies: NO KNOWN ALLERGIES (Unverified , 11/01/24) Home Meds No Active Prescriptions or Reported Meds Current Medications Current Medications Medications (Trade) Dose Ordered Sig/Deshawn Route PRN Reason Start Time Stop Time Status Last Admin Aspirin 81 mg DAILY PO 11/02/24 10:00 11/02/24 09:58 DC Atorvastatin Calcium (Lipitor) 10 mg HS PO 11/02/24 22:00 11/02/24 09:59 DC Temazepam (Restoril) 15 mg QHSP PRN PO FOR INSOMNIA 11/01/24 22:45 11/02/24 09:59 DC Ondansetron HCl (Zofran) 4 mg Q4HP PRN IV NAUSEA / VOMITING 11/01/24 22:45 11/02/24 09:59 DC Acetaminophen (Tylenol Tablet) 650 mg Q6HP PRN PO PAIN SCALE 1-3 OR TEMP>100.4 11/01/24 22:45 11/02/24 09:59 DC Nitroglycerin (Ntrostat Sublingual) 0.4 mg Q5MINP PRN SL FOR CHEST PAIN 11/01/24 22:45 11/02/24 09:59 DC Morphine Sulfate 2 mg Q30M PRN IV FOR CHEST PAIN 11/01/24 22:45 11/02/24 09:59 DC Aspirin 81 mg DAILY PO 11/02/24 10:00 11/02/24 10:15 Atorvastatin Calcium (Lipitor) 10 mg HS PO 11/02/24 22:00 Temazepam (Restoril) 15 mg QHSP PRN PO FOR INSOMNIA 11/02/24 10:00 Ondansetron HCl (Zofran) 4 mg Q4HP PRN IV NAUSEA / VOMITING 11/02/24 10:00 Acetaminophen (Tylenol Tablet) 650 mg Q6HP PRN PO PAIN SCALE 1-3 OR TEMP>100.4 11/02/24 10:00 Nitroglycerin (Ntrostat Sublingual) 0.4 mg Q5MINP PRN SL FOR CHEST PAIN 11/02/24 10:00 Morphine Sulfate 2 mg Q30M PRN IV FOR CHEST PAIN 11/02/24 10:00 Vital Signs Vital Signs Date Time Temp Pulse Resp B/P (MAP) Pulse Ox O2 Delivery O2 Flow Rate FiO2 11/02/24 09:30 97.5 62 18 132/90 (104) 96 97.5 11/02/24 02:12 Room Air* 0 21 Physical Exam General Appearance: Alert, Oriented X3, Cooperative, No acute distress HEENT: Atraumatic, PERRLA, EOMI, Mucous membrane moist/pink Respiratory: Clear to auscultation, Normal air movement Cardiovascular: Regular rate, Normal S1, Normal S2, No murmurs, no chest wall tenderness Abdominal: Normal bowel sounds, Soft, No tenderness, No hepatospenomegaly, No masses Extremities: No clubbing, No cyanosis, No edema, Normal pulses, No tenderness/swelling Skin: No rashes, No breakdown, No significant lesion Neuro: Normal gait, Normal speech, Strength at 5/5 X4 ext, Normal tone, Sensation intact, Cranial nerves 3-12 NL, Reflexes 2+ Psych/Mental Status: Mental status NL, Mood NL Labs/Diagnostic Data Labs Test 11/02/24 06:54 11/01/24 19:50 11/01/24 17:08 11/01/24 16:49 Range/Units Sodium Level 139 136-145 mmol/L Potassium Level 3.6 3.5-5.1 mmol/L Chloride Level 101 98-107 mmol/L Carbon Dioxide Level 29 20-31 mmol/L Anion Gap 9 5-15 Blood Urea Nitrogen 18 9-23 mg/dL Creatinine 1.26 0.700-1.30 mg/dL Glomerular Filtration Rate Calc 73 >90 mL/min BUN/Creatinine Ratio 14.3 10.0-20.0 Serum Glucose 101 74-106 mg/dL Calcium Level 10.3 8.7-10.4 mg/dL Troponin I High Sensitivity < 3 L </=54 ng/L Triglycerides Level 257 H < 150 mg/dL Cholesterol Level 203 H < 200 mg/dL LDL Cholesterol 130 H < 100 mg/dL HDL Cholesterol 43 40-59 mg/dL Thyroid Stimulating Hormone (TSH) 2.82 0.55-4.78 uIU/mL White Blood Count 7.9 4.4-10.8 10^3/uL Red Blood Count 6.13 H 4.5-5.90 10^6/uL Hemoglobin 18.4 H 13.5-17.5 g/dL Hematocrit 52.4 41.0-53.0 % Mean Corpuscular Volume 85.5 80.0-100.0 fL Mean Corpuscular Hemoglobin 30.1 28.0-32.0 pg Mean Corpuscular Hemoglobin Concent 35.2 32.0-36.0 g/dL Red Cell Distribution Width 13.1 11.8-14.3 % Platelet Count 284 140-450 10^3/uL Mean Platelet Volume 7.9 6.9-10.8 fL Neutrophils (%) (Auto) 60.1 37.0-80.0 % Lymphocytes (%) (Auto) 26.4 10.0-50.0 % Monocytes (%) (Auto) 8.7 0.0-12.0 % Eosinophils (%) (Auto) 4.0 0.0-7.0 % Basophils (%) (Auto) 0.8 0.0-2.0 % Neutrophils # (Auto) 4.7 1.6-8.6 10 ^3/uL Lymphocytes # (Auto) 2.1 0.4-5.4 10 ^3/uL Monocytes # (Auto) 0.7 0-1.3 10 ^3/uL Eosinophils # (Auto) 0.3 0-0.8 10 ^3/uL Basophils # (Auto) 0.1 0-0.2 10 ^3/uL Nucleated Red Blood Cells 0.0 % POC Glucose 106 70-106 mg/dl Assessment Chest pain, non-cardiac Hypertension Dyslipidemia Obesity * EKGs shows normal sinus rhythm with no significant ST or T-wave changes * Serial trop I is within normal limits * Chest x-ray shows no intra thoracic abnormalities * Normal echo study Plan/recommendation (Case discussed with Dr. Corcoran) * We sign off * Discharge plan from cardiology standpoint: Continue rosuvastatin. D/C entresto, aspirin, and ranolazine * Rest of plan are primary team Thank you for giving us the opportunity to take care of your patient. Please call back if you have any questions/concerns. Plan/Recommendation pt seen with cardiac team agree with assessment and plan pt started on unnecessary cv meds in [place] normal echo dc meds negative trops Plan discussed with: Patient, Spouse, Other (RN) PAL CALDWELL Nov 02, 2024 10:46 MOODY CORCORAN MD Nov 02, 2024 13:07
[2024-11-02] MEDS: ATORVASTATIN 20 MG TAB PO SCH (11:37)
--- NOTE | 2024-11-02 11:40 | DVHSR ---
APPROVED REPORT EXAM: Two-dimensional and M-mode echocardiogram with Doppler and color Doppler. Blood Pressure: 141/95 mmHg INDICATION Chest Pain RISK FACTORS Height: 67, Weight: 205 DIMENSIONS LVDd4.3 (3.8-5.7cm)LA (2D)3.8 (1.9-4.0cm)Aortic Root3.7 (2.0-3.7cm) LVDs2.5 (2.5-4.0cm)LA (MM) (1.9-4.0cm)Aortic Cusp Exc1.9 (1.5-2.0cm) EF (%) 74.0 (55-70%)Rt. Atrium4.0 (1.9-4.0cm)Asc. Aorta cm IVSd1.4 (0.7-1.1cm)RV (D) (1.8-2.4cm) PWd1.4 (0.7-1.1cm) Mitral Valve MitralMitral Stenosis E wave0.39m/sMV Mean GR.mmHg A wave0.56m/sMV Peak GR.mmHg E/A ratio0.72D MVAcm2 DECEL [id number] 1/2 Timems Aortic Valve Aortic ValveAortic Stenosis V11.05m/Sydni Mean GR.3mmHg V21.09m/Sydni Peak GR.5mmHg LVOT Diameter2.3 (1.8-2.4cm)Doppler AVA4.00cm2 Pulmonic Valve V20.97m/s Other Information Technically limited study due to body habitus. Conclusion lvef 65% normal LV and RV function and size normal atria no severe valve abnormalities noted normal IVC normal pericardium
[2024-11-02 12:03] LABS: Amphetamine Screen, Urine Neg (NEGATIVE); Barbiturate Scree,Urine Neg (NEGATIVE); Benzodiazephine Screen, Urine Neg (NEGATIVE); Cannabinoid Screen, Urine Neg (NEGATIVE); Cocaine Screen, Urine Neg (NEGATIVE); Opiate Scree,Urine Neg (NEGATIVE); Phencyclidine Screen, Urine Neg (NEGATIVE)
[2024-11-02 13:00] VITALS: BP 122/85; PULSE 71; RESP 18; TEMP 97.6; O2SAT 97
[2024-11-02 13:59] LABS: Urine Protein, UAD Negative (Negative)
--- NOTE | 2024-11-02 14:59 | DVHDSRES ---
Discharge Summary Date of Admission Resident Creating Document: BUD BERG RESIDENT Nov 01, 2024 at 22:36 Date of Discharge: Nov 02, 2024 Admitting Diagnosis chest pain Labs/Diagnostic Data: Laboratory Results Test 11/02/24 10:30 11/02/24 06:54 11/01/24 19:50 11/01/24 17:08 Urine Color Light-yellow (Yellow) Urine Clarity Clear (Clear) Urine pH 6.5 (5.0-9.0) Urine Specific [place] 1.015 (1.001-1.035) Urine Protein Negative (Negative) Urine Ketones Negative (Negative) Urine Blood Negative /uL (Negative) Urine Nitrite Negative (Negative) Urine Bilirubin Negative (Negative) Urine Urobilinogen Normal mg/dL (Negative) Urine Leukocyte Esterase Negative /uL (Negative) Urine RBC <1 /hpf (0 - 3) Urine Microscopic WBC 1 /HPF (0-3) Urine Squamous Epithelial Cells None seen /hpf (<5) Urine Bacteria None seen /hpf (None Seen) Urine Glucose Normal mg/dL (Normal) Urine Opiates Screen Neg (NEGATIVE) Urine Fentanyl Screen Neg (NEGATIVE) Urine Barbiturates Screen Neg (NEGATIVE) Urine Phencyclidine Screen Neg (NEGATIVE) Urine Amphetamines Screen Neg (NEGATIVE) Urine Benzodiazepines Screen Neg (NEGATIVE) Urine Cocaine Screen Neg (NEGATIVE) Urine Cannabinoids Screen Neg (NEGATIVE) Sodium Level 139 mmol/L (136-145) Potassium Level 3.6 mmol/L (3.5-5.1) Chloride Level 101 mmol/L (98-107) Carbon Dioxide Level 29 mmol/L (20-31) Anion Gap 9 (5-15) Blood Urea Nitrogen 18 mg/dL (9-23) Creatinine 1.26 mg/dL (0.700-1.30) Glomerular Filtration Rate Calc 73 mL/min (>90) BUN/Creatinine Ratio 14.3 (10.0-20.0) Serum Glucose 101 mg/dL (74-106) Calcium Level 10.3 mg/dL (8.7-10.4) Magnesium Level 2.0 mg/dL (1.6-2.6) B-Type Natriuretic Peptide < 0 pg/mL (0-100) Troponin I High Sensitivity < 3 ng/L (</=54) Triglycerides Level 257 mg/dL (< 150) Cholesterol Level 203 mg/dL (< 200) LDL Cholesterol 130 mg/dL (< 100) HDL Cholesterol 43 mg/dL (40-59) Thyroid Stimulating Hormone (TSH) 2.82 uIU/mL (0.55-4.78) White Blood Count 7.9 10^3/uL (4.4-10.8) Red Blood Count 6.13 10^6/uL (4.5-5.90) Hemoglobin 18.4 g/dL (13.5-17.5) Hematocrit 52.4 % (41.0-53.0) Mean Corpuscular Volume 85.5 fL (80.0-100.0) Mean Corpuscular Hemoglobin 30.1 pg (28.0-32.0) Mean Corpuscular Hemoglobin Concent 35.2 g/dL (32.0-36.0) Red Cell Distribution Width 13.1 % (11.8-14.3) Platelet Count 284 10^3/uL (140-450) Mean Platelet Volume 7.9 fL (6.9-10.8) Neutrophils (%) (Auto) 60.1 % (37.0-80.0) Lymphocytes (%) (Auto) 26.4 % (10.0-50.0) Monocytes (%) (Auto) 8.7 % (0.0-12.0) Eosinophils (%) (Auto) 4.0 % (0.0-7.0) Basophils (%) (Auto) 0.8 % (0.0-2.0) Neutrophils # (Auto) 4.7 10 ^3/uL (1.6-8.6) Lymphocytes # (Auto) 2.1 10 ^3/uL (0.4-5.4) Monocytes # (Auto) 0.7 10 ^3/uL (0-1.3) Eosinophils # (Auto) 0.3 10 ^3/uL (0-0.8) Basophils # (Auto) 0.1 10 ^3/uL (0-0.2) Nucleated Red Blood Cells 0.0 % Test 11/01/24 16:49 POC Glucose 106 mg/dl (70-106) Other Laboratory Tests 11/02/24 06:54 11/01/24 17:08 Brief Hx & Hospital Course: 44-year-old male presents for the evaluation of chest pain. Patient reports that he has been having chest pain for the past 1 week which is usual/ly 3-4/10 intensity, however 2 days ago the pain has increased To 10/10 intensity , is substernal and he describes it as pressure like, squeezing pain that is nonradiating. The pain is constant even when he sits or gets up but it is associated with shortness of breath when he walks or moves this. Patient denies any cough, fever, nausea or any other symptoms. He recently went to [place] and had shortness of breath even then and he went to the doctor there who told him that he needed visit a clothes model. PMH: Gastric ulcers PSH: Gastric bypass surgery in 2019 Family history: reviewed and Noncontributory to the case Social history: Patient lives with his family and admits to smoking 5-6 cigarettes a day for the past 20 years. He denies any alcohol or drug use. Home medication: None Brief history of hospitalization: Patient came in with chest pain that was retrosternal in we ruled out ACS. we gave him aspirin, atorvastatin, temazepam, ondansetron, acetaminophen, nitroglycerin and morphine sulfate. Chest x-ray showed no abnormality and his EKG showed normal sinus rhythm noted with no significant ST or T-wave changes. seizure trop I was within normal limits.Cardiac consultation was done in an echocardiogram EF 65% was done as well Which came out normal. Cardiology has cleared him for discharge with rosuvastatin, and to stop Entresto, aspirin and ranolazine. patient is now stable for discharge and we have counseled him regarding adherence to medication that he has been prescribed. Patient communicated understanding. patient also had slight tenderness in the suprapubic region on palpation during physical examination. A urine analysis showed normal reports. He is being discharged today. Patient condition was improved, hemodynamically stable and in condition to be discharged home with optimal medical treatment. Patient was advised healthy lifestyle modifications including diet and exercise advised to follow up with the PCP, Cardiology and discharge Clinic. Pt is lying on bed General Appearance: Alert, Oriented X3, Cooperative, Not in acute distress HEENT: Atraumatic, Mucous membranes moist/pink Respiratory: Clear to auscultation, Normal air movement, No added sounds Cardiovascular: Regular rate, Normal S1, Normal S2, No murmurs, tenderness on palpation in the mid chest area Abdominal: Active bowel sounds, Soft, no distention, slight tenderness in the suprapubic region Extremities: No edema, Normal pulses, No tenderness/swelling Skin: No Significant rash, except past surgical scars Neuro: Normal speech, sensorimotor deficits none Psych/Mental Status: Mental status NL, Mood NL Nurse was there as construction worker during examination Operations or Procedures XY CHEST XRAY 1 VIEW, IMPRESSION: No acute intrathoracic abnormality. [facility] - ECHO 2D MODE CARDIAC DOP REASON: chest pain ORDER NUMBER(s): [id number], ACCESSION NUMBER(s): [id number] APPROVED REPORT EXAM: Two-dimensional and M-mode echocardiogram with Doppler and color Doppler. Blood Pressure: 141/95 mmHg INDICATION Chest Pain RISK FACTORS Height: 67, Weight: 205 DIMENSIONS LVDd 4.3 (3.8-5.7cm) LA (2D) 3.8 (1.9-4.0cm) Aortic Root 3.7 (2.0- 3.7cm) LVDs 2.5 (2.5-4.0cm) LA (MM) (1.9-4.0cm) Aortic Cusp Exc 1.9 (1.5- 2.0cm) EF (%) 74.0 (55-70%) Rt. Atrium 4.0 (1.9-4.0cm) Asc. Aorta cm IVSd 1.4 (0.7-1.1cm) RV (D) (1.8-2.4cm) PWd 1.4 (0.7-1.1cm) Mitral Valve Mitral Mitral Stenosis E wave 0.39m/s MV Mean GR. mmHg A wave 0.56m/s MV Peak GR. mmHg E/A ratio 0.7 2D MVA cm2 DECEL Time 384ms PRESS 1/2 Time ms Aortic Valve Aortic Valve Aortic Stenosis V1 1.05m/s AO Mean GR. 3mmHg V2 1.09m/s AO Peak GR. 5mmHg LVOT Diameter 2.3 (1.8-2.4cm) Doppler YUNG 4.00cm2 Pulmonic Valve V2 0.97m/s Other Information Technically limited study due to body habitus. Conclusion lvef 65% normal LV and RV function and size normal atria no severe valve abnormalities noted normal IVC normal pericardium SIGNED BY: MOODY CORCORAN MD SIGNED DATE/TIME: 11/02/24 1140 Condition at Discharge: Stable Final Diagnosis/Problems List chest pain, ruled out acs atypical chest pain likely from gastritis/GERD Discharge Disposition: Home Discharge Instruct/Medications Diet: Consistent carbohydrate, Cardiac 2g Na,low cholest Activity: No Restrictions, As Tolerated Follow Up/Referral: follow up with cardiology outpatient Medications: continue taking medicines entresto, aspirin, and ranolazine Scheduled Aspirin (Aspirin Low Dose), 81 MG PO DAILY Atorvastatin Calcium (Atorvastatin Calcium), 40 MG PO HS Pantoprazole Sodium Sesquihydr (Protonix), 40 MG PO DAILY Discharge Statement: "Patient was advised to return to the ER or call 911 if any headaches, dizziness, shortness of breath, chest pain, abdominal pain, bleeding, fevers, or worsening of medical condition. Patient was counseled about treatment plan, medications, possible side effects, patientverbalized understanding. All questions were answered to the best of my ability. This discharge took greater then 30 minutes in planning, reviewing documentation, counseling the patient, and discussing with other team members." ASSESSMENT ASSESSMENT Assessment atypical chest pain, not cardiac Date of Service: Nov 02, 2024 Billing Provider: JOSEP WINSLOW MD Common Visit Codes: [id number] DISCH DAY >30min BUD BERG RESIDENT Nov 02, 2024 14:59 SHEEBA RENAE RESIDENT Nov 02, 2024 16:34 JOSEP WINSLOW MD Nov 02, 2024 22:32
[2024-11-02] MEDS ORDERED: ASPI-325 PO (16:03)
[2024-11-02] MEDS ORDERED: NITR0.4S29 SL (16:03)
[2024-11-02] MEDS ORDERED: ATOR20TA50 PO (16:03)
[2024-11-02] MEDS ORDERED: PANT40TA2 PO (16:35)
[2024-11-02 16:37] VITALS: BP 122/85; PULSE 71; RESP 18; TEMP 97.6; O2SAT 97
[2024-11-02] MEDS ORDERED: ATORVASTATIN 20 MG TAB PO SCH ×2 (22:00)
== END 2024-11-02 17:30 | disposition home or self-care (01) | DRG 241 ==
LOC: ER 16:39 → OVERFLOW 22:36 → TELE-WESTW 22:40 → ER 22:40 → TELE-WESTW 11-02 01:25
PROVIDERS: ADMIT Internal Medicine; ATTEND Internal Medicine
DX: K29.70 Gastritis, unspecified, without bleeding (principal); E66.01 Morbid (severe) obesity due to excess calories; K21.9 Gastro-esophageal reflux disease without esophagitis; I25.10 Atherosclerotic heart disease of native coronary artery without angina pectoris; E78.5 Hyperlipidemia, unspecified; I10 Essential (primary) hypertension; F17.210 Nicotine dependence, cigarettes, uncomplicated; Z95.1 Presence of aortocoronary bypass graft; Z79.899 Other long term (current) drug therapy; Z83.3 Family history of diabetes mellitus; Z68.31 Body mass index [BMI] 31.0-31.9, adult; Z98.84 Bariatric surgery status; Z79.1 Long term (current) use of non-steroidal anti-inflammatories (NSAID)
CPT/HCPCS: 36415; 71045; 80048; 80061; 80307; 81001; 82962; 83735; 83880; 84443; 84484; 85025; 93005; 93306; G0378